=== PATIENT | male | born 1940 | race Caucasian/White ===

== ENCOUNTER → 2017-08-15 | Day surgery (SDC) | payer MEDICARE, OTHER ==
[2017-08-09 10:56] LABS: BASOPHILS # (AUTO) 0.1 (0.0-0.1); BASOPHILS % 1.1 % (0.0-1.0); EOSINOPHILS # (AUTO) 0.1 (0.0-0.4); EOSINOPHILS % 1.7 % (0.0-6.0); HEMATOCRIT 39.6 % (38.2-49.6); HEMOGLOBIN 13.4 g/dL (14.0-18.0); LYMPHOCYTES # (AUTO) 1.5 (1.0-3.2); LYMPHOCYTES % 22.4 % (18.0-39.1); MEAN CORPUSCULAR HEMOGLOBIN 29.1 pg (28-32); MEAN CORPUSCULAR HGB CONC 33.8 g/dL (31-35); MEAN CORPUSCULAR VOLUME 86.1 fL (81-99); MONOCYTES # (AUTO) 0.6 (0.2-0.8); MONOCYTES % 9.3 % (4.4-11.3); NEUTROPHILS # (AUTO) 4.3 (2.1-6.9); PLATELET COUNT 234 x10e3/uL (140-360); RED CELL DISTRIBUTION WIDTH 13.2 % (11.7-14.4)
[~2017-08-15] MED LIST: AMLODIPINE BESYL5 MG PO; ASPIR 8181 MG PO; BENICAR HCT 401 EAC1 PO; FENTANYL CITRATE/PF 100MCG/2 ML INJ ONE; FISH OIL 1,0001 EAC2 PO; HYZAAR 100-251 EACH; LIDOCAINE HCL 2% LOCAL INJ 5 ML SDV VIAL INJ ONE; PROPOFOL IV EMULSION 10 MG/ML 50 ML VIAL ONE
--- NOTE | 2017-08-15 15:17 | Operative Report ---
DATE OF PROCEDURE: August 15, 2017 REFERRING PHYSICIAN: Dr. Jerman White PROCEDURE PERFORMED: Colonoscopy and polypectomy. INDICATIONS FOR COLONOSCOPY: Colorectal cancer screening. MEDICATION: Patient was done under MAC. Please see anesthesiologist's note. PROCEDURE: With the patient in the left lateral decubitus position, the flexible fiberoptic Olympus colonoscope was inserted into the rectum with ease advanced all the way to the cecum. The scope was then withdrawn slowly. Mucosa overlying the cecum, ascending colon, transverse colon, and descending colon appeared to be within normal limits. Diverticular disease was noted in the sigmoid. One polyp was hot biopsied from the rectum. The scope was then retroflexed into the distal rectum, and the area around the dentate line appeared to be within normal limits. The scope was then straightened out. It was subsequently withdrawn. Patient tolerated the procedure well. IMPRESSION 1. Diverticulosis. 2. Rectal polyp, hot biopsied. PLAN: Follow up histology. Initiate high-fiber and low-fat diet. Initiate high-fiber supplement. Patient will need a followup colonoscopy in 3-5 years. Job#: [id number] [place] cc:JERMAN WHITE M.D.
== END | disposition home or self-care (01) ==
LOC: OR 11:48
PROVIDERS: ATTEND Internal Medicine Gastroenterology
DX: Z12.11 Encounter for screening for malignant neoplasm of colon (principal); K62.1 Rectal polyp; K57.30 Diverticulosis of large intestine without perforation or abscess without bleeding; C44.90 Unspecified malignant neoplasm of skin, unspecified; K44.9 Diaphragmatic hernia without obstruction or gangrene; I10 Essential (primary) hypertension; R00.1 Bradycardia, unspecified; H91.90 Unspecified hearing loss, unspecified ear; N39.0 Urinary tract infection, site not specified; Z01.810 Encounter for preprocedural cardiovascular examination
CPT/HCPCS: 36415; 45384; 85025; 88305; 93005; J2001

== ENCOUNTER 2018-06-22 12:00 | Outpatient (RCR) | payer MEDICARE, OTHER ==
[~2018-06-22 12:00] MED LIST changes: -FENTANYL CITRATE/PF 100MCG/2 ML INJ ONE; -LIDOCAINE HCL 2% LOCAL INJ 5 ML SDV VIAL INJ ONE; -PROPOFOL IV EMULSION 10 MG/ML 50 ML VIAL ONE
--- NOTE | 2018-06-29 10:46 | NUR ---
PT called and cx apt with Speech Therapy today, session to be rescheduled. Pt will return 07/04/18.
== END 2018-06-29 ==
LOC: ST 12:00
PROVIDERS: ATTEND Psychiatry & Neurology Neurology
DX: F80.1 Expressive language disorder (principal); I69.919 Unspecified symptoms and signs involving cognitive functions following unspecified cerebrovascular disease; G31.84 Mild cognitive impairment of uncertain or unknown etiology
CPT/HCPCS: 92523

== ENCOUNTER 2018-07-25 13:00 | Outpatient (RCR) | payer MEDICARE, OTHER ==
--- NOTE | 2018-07-14 18:17 | NUR ---
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 Pt has participated in eight sessions of therapy. Short term goals and progress follow: 1.Pt will perform diodochokinetic exercises 25 times in 15 secondspt averaged 22 times in 15 seconds (baseline was 7 times). 2.Pt will read words and phrases with simple and complex blends with 95% accuracypt read words and phrases with 90% accuracy (50% at baseline). 3.Pt will participate in speech motor exercises with 90% accuracypt completed motor speech exercises levels 1-4, which included CV, CVCV, and VCV syllables, voiced and unvoiced consonants, with 90% accuracy. Pt completed level 5 exercises, which included 2 syllable VCCV, voiced and unvoiced consonants, with 95% accuracy. Pt completed level 6 exercises, which included three syllable CVCVCV voiced consonants with 80% accuracy, and level 7 exercises, which included three syllable CVCVCV voiced and unvoiced consonants with 75% accuracy (baseline was 80% at levels 1-4 and 50% at level 5). Pt also completed minimal pairs in the initial and final position with 56% accuracy (baseline 25% accuracy). 4.Pt will repeat familiar phrases with 85-90dBpt produced functional sentences with an average of 80 dB (baseline conversational loudness was 66 dB). 5.Pt will follow dysarthria strategies in sessions and at home with In[employer] addressed this session. 6. Pt will participate in continued dxt/txhome oral motor exercise program reviewed. Also continued discussion about vocal hygiene. Pt noted to clear his throat 13 times during the session, which is a marked improvement from last session. 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 Dyskinesias are still noted throughout session, especially when completing higher level oral motor speech tasks, but have improved significantly. Pt completes all tasks eagerly and showed high level of motivation to improve his communication skills. Pt has demonstrated significant improvement since the initial eval and would benefit from continued speech and language therapy. Recommendation: Recommend continued speech and language therapy 2x/week X 4 weeks. [employer] [place] Goal: Maximize functional communication skills for home and social environments. Short Term Goals: Continue goals 1-6 as listed above. Aster Mustafa M.A. [facility] Date of Session: 07/13/18 Speech and Language Therapy X 65 minutes MICHELLE SHAH Motor Speech Level 6
== END 2018-07-30 ==
LOC: ST 13:00
PROVIDERS: ATTEND Psychiatry & Neurology Neurology
DX: I69.919 Unspecified symptoms and signs involving cognitive functions following unspecified cerebrovascular disease (principal); F80.1 Expressive language disorder; G31.84 Mild cognitive impairment of uncertain or unknown etiology